=== PATIENT | female | born 1990 | race Caucasian/White ===

== ENCOUNTER 2020-08-22 12:01 | Outpatient (REF) | payer OTHER, SELFPAY ==
[2020-08-22 16:49] LABS: CT PCR NOT DETECTED (Not Detect.); NG PCR NOT DETECTED (Not Detect.)
[2020-08-23 09:05] LABS: BV Int Neg Control Negative (Negative); BV Int Pos Control Positive (Positive)
[2020-09-01 07:01] LABS: HPV mRNA E6/E7 rflx Not Detected (Not Detected)
== END 2020-08-22 12:02 | disposition home or self-care (01) ==
LOC: HO.LAB 12:01
PROVIDERS: Visit Provider Obstetrics & Gynecology
DX: Z01.419 Encounter for gynecological examination (general) (routine) without abnormal findings (principal); Z11.51 Encounter for screening for human papillomavirus (HPV); Z11.3 Encounter for screening for infections with a predominantly sexual mode of transmission; Z11.8 Encounter for screening for other infectious and parasitic diseases
CPT/HCPCS: 36415; 87480; 87491; 87510; 87591; 87624; 87660; 88141; 88142

== ENCOUNTER → 2021-06-07 08:17 | Outpatient (BNVA) | payer OTHER, SELFPAY | PROVIDERS: Visit Provider Advanced Practice Midwife | DX: Z30.432 Encounter for removal of intrauterine contraceptive device (principal); Z31.69 Encounter for other general counseling and advice on procreation | CPT/HCPCS: 58301 ==

== ENCOUNTER → 2021-09-12 08:11 | Outpatient (BNVA) | payer BC, SELFPAY | PROVIDERS: Visit Provider Advanced Practice Midwife | DX: Z13.89 Encounter for screening for other disorder (principal) ==

== ENCOUNTER 2022-10-11 08:04 | Outpatient (REF) | payer OTHER, SELFPAY ==
[2022-10-11 15:36] LABS: CT PCR NOT DETECTED (Not Detect.); NG PCR NOT DETECTED (Not Detect.)
[2022-10-13 04:04] LABS: HPV mRNA E6/E7 rflx Not Detected (Not Detected)
== END 2022-10-11 08:05 | disposition home or self-care (01) ==
LOC: HO.LNP 08:04
PROVIDERS: PCP Nurse Practitioner Family; Visit Provider Advanced Practice Midwife
DX: Z01.419 Encounter for gynecological examination (general) (routine) without abnormal findings (principal); Z11.51 Encounter for screening for human papillomavirus (HPV); Z20.2 Contact with and (suspected) exposure to infections with a predominantly sexual mode of transmission
CPT/HCPCS: 0353U; 87624; 88142

== ENCOUNTER 2022-11-14 08:05 | Outpatient (REF) | payer OTHER, SELFPAY | END 2022-11-14 08:06 | disposition home or self-care (01) | LOC: HO.LNP 08:05 | PROVIDERS: PCP Nurse Practitioner Family; Visit Provider Obstetrics & Gynecology | DX: L91.8 Other hypertrophic disorders of the skin (principal) | CPT/HCPCS: 11200; 11402; 88304 ==

== ENCOUNTER → 2022-12-12 08:13 | Outpatient (BNVA) | payer OTHER, SELFPAY | PROVIDERS: PCP Nurse Practitioner Family; Visit Provider Obstetrics & Gynecology | DX: L91.8 Other hypertrophic disorders of the skin (principal) | CPT/HCPCS: 99212 ==

== ENCOUNTER 2023-08-02 07:56 | Outpatient (AMB) | payer OTHER, SELFPAY ==
[2023-08-02 08:05] VITALS: BP 124/74; BMI 49.7
--- NOTE | 2023-08-02 08:05 | A.OFFVIS_ITS ---
Intake Vital Signs 08/02/23 08:05 Height 5 ft 6 in Weight 308 lb BMI 49.7 BP 124/74 Intake Visit Reasons: BC Consult Cognos Report Developer Required: No Information Interpreted: non-clinical & clinical Friction Welding Machine Operator: Friction Welding Machine Operator Present Accompanied by: Self / Same As Patient Allergies sulfamethoxazole [From Bactrim] Adverse Reaction (Verified 12/12/22 08:25) rash trimethoprim [From Bactrim] Adverse Reaction (Verified 12/12/22 08:25) rash Is last menstrual period known: Yes Last menstrual period: 07/22/23 Post menopausal: No HPI HPI Comments History of Present Illness Details Patient is here today for control consult. She has no longer with her partner and not seeking infertility services at this time. She reports recent STD screening at a walk-in center in June and reports testing was negative. It results in the chart from the facility today. She had the Mirena in the past and is interested in her options but is leaning towards having another Mirena as she likes not having a menstrual cycle monthly. Her cycles tend to be 3-4 days in length. Not currently sexually active. 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 Sexual orientation: Straight/Heterosexual Gender identity: Female Female Reproductive History Menstrual Date of last menstrual period: 07/22/23 Review of Systems Const All systems reviewed & are unremarkable except as noted in HPI and below Endo Reports no additional complaints Physical Exam Vital Signs: Last Vital Signs BP 124/74 08/02/23 08:05 BMI result Body Mass Index 49.7 Const General: cooperative, healthy appearing and no acute distress Psych Appearance: well kempt Attitude: cooperative Thought process: Normal thought process present Results AMB Test Urine AMB Test Urine Negative Last Edit by Kellee Ulloa CMA on 08:22 Assessment & Plan Assessment & Plan (1) control counseling: Code(s): Z30.09 - Encounter for other general counseling and advice on contraception Plan Discussed: Control Counseling Counseled on all options available. She decided the Mirena would be her best option. Advised preprocedure planning to eat drink that day. And to take 600 mg of ibuprofen 1 hour before the procedure time to help with her cramping. Plan cultures at the next visit. Can insert the IUD without her as long as there is no risks for . All of her questions and concerns were addressed to the best of my ability and shared decision making. She is agreeable to plan of care. Orders: Orders AMB HCG Urine Test Today Z32.02 - Encounter for test, result negative Coding Level of Care Code Est Pt Level 3 (92088) Diagnoses control counseling Z30.09
== END 2023-08-02 08:36 | disposition home or self-care (01) ==
LOC: HO.HWS 07:56
PROVIDERS: PCP Nurse Practitioner Family; Visit Provider Advanced Practice Midwife
DX: Z30.09 Encounter for other general counseling and advice on contraception (principal); Z32.02 Encounter for pregnancy test, result negative
CPT/HCPCS: 99213

== ENCOUNTER → 2023-08-02 07:56 | Outpatient (BNVA) | payer OTHER, SELFPAY | PROVIDERS: PCP Nurse Practitioner Family; Visit Provider Advanced Practice Midwife | DX: Z30.09 Encounter for other general counseling and advice on contraception (principal) | CPT/HCPCS: 81025; 99212 ==

== ENCOUNTER 2023-08-27 08:18 | Outpatient (AMB) | payer OTHER, SELFPAY ==
--- NOTE | 2023-08-27 08:21 | A.OFFVIS_ITS ---
Intake Vital Signs 08/27/23 08:23 Height 5 ft 6 in Weight 308 lb BMI 49.7 BP 110/70 Intake Visit Reasons: IUD Insertion Freight Sorter: Freight Sorter Present (Michelle) Allergies sulfamethoxazole [From Bactrim] Adverse Reaction (Verified 08/27/23 08:23) rash trimethoprim [From Bactrim] Adverse Reaction (Verified 08/27/23 08:23) rash Is last menstrual period known: Yes Last menstrual period: 08/22/23 HPI HPI Comments History of Present Illness Details Patient presents for her Mirena IUD insertion. LMP 08/22/2023. Denies any unprotected intimacy. 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 Sexual orientation: Straight/Heterosexual Gender identity: Female Female Reproductive History Menstrual Date of last menstrual period: 08/22/23 control method: progestin IUCD (Mirena insertion 08/27/2023) Review of Systems Const All systems reviewed & are unremarkable except as noted in HPI and below Physical Exam Vital Signs: Last Vital Signs BP 110/70 08/27/23 08:23 BMI result Body Mass Index 49.7 Const General: cooperative, healthy appearing and no acute distress Orientation/consciousness: patient oriented x3 GI Inspection: Yes normal to inspection Palpation (GI): Soft to palpation and Other GI palpation findings present (Nontender) Rectal Exam - Female: visual inspection normal General: Yes bladder normal to palpation External Female Exam: normal appearance of the urethra Speculum Exam - Vagina: normal appearance of the vagina, normal palpation, normal vaginal discharge and vaginal bleeding (Small amount of blood) Speculum Exam - Cervix: normal appearance of the cervix and normal palpation Bimanual exam- vagina & uterus: normal bimanual exam, normal palpation, uterine size normal, bladder normal to palpation, normal palpation, uterine shape normal and non-tender Bimanual Exam- Adnexa, other: normal adnexae OB/external & speculum: vaginal bleeding (Small amount of blood) Neuro General: patient oriented x3 Office Procedures Contraception Insert/Removal Details Details: The patient is here today for a IUD insertion. She was counseled on the side effects including: menstrual cycle changes, pain, infection, bleeding, or expulsion. Risks of injury to the vagina, cervix, uterus, tubes, ovaries, bowel, bladder, and any adjacent tissue, resulting in nerve damage, scarring, and pain. Risks complications for the procedure that may require other test including ultrasounds, Xray, CT or MRI scan, surgery, anesthesia, blood transfusion. A urine test was completed and was negative. She was consented for the IUD insertion and has signed the consent form. All questions were answered. IUD Insertion: The patient was placed in the dorsal lithotomy position and a sterile speculum was inserted. The procedure was completed under aseptic technique. The cervix was cleansed with a Betadine solution x 3 swabs. A single toothed tenaculum was applied to the cervix for stabilization, and the uterus was sounded to 9cm. The device was inserted and released with a gentle motion. Bleeding from the tenaculum sites and the procedure were minimal. The strings were trimmed to 3cm. All of the equipment was removed and the bimanual was normal, no tip was palpable at the cervical os. The patient tolerated the procedure well and left the office in good condition. Post IUD Insertion Care: There may be some post insertion bleeding for several days that is usually light and can turn to a light brown or pink in color. Mild cramping may occur. Nothing in the vagina including: tampons, douching or intimacy for several days. You may take an over the counter mild analgesia like Tylenol or Advil (if no allergies), per the manufacturers recommendations on dosing and frequency. Follow the directions completely. Call the office if any: fever (over 100.4), flu like symptoms, abdominal pain, worsening cramping not resolved with over the counter medications, foul smelling vaginal odor, signs of infected appearing discharge, or heavy bleeding. Use a condom for a back up method if indicated for 7 days. Always use a condom for STI prevention; IUD's are not protective against STD's. Return to the office in 4-6 weeks for IUD recheck. This note is constructed using voice recognition software. While every effort has been made to ensure accuracy, clinical cytopathologist errors may have been included. 38284 - Insertion Results AMB Test Urine AMB Test Urine Negative Last Edit by BARBARA Tavera on 08/27/23 08:36 Results Reviewed Results Reviewed: Laboratory Last Values [facility] Clinic Negative 08/27/23 08:36 Assessment & Plan Assessment & Plan (1) Encounter for insertion of mirena IUD: Code(s): Z30.430 - Encounter for insertion of intrauterine contraceptive device Plan See procedure notes Orders: Orders AMB HCG Urine Test Today Z32.02 - Encounter for test, result negative CT NG by PCR Today Z20.2 - Contact with and (suspected) exposure to infections with a predominantly sexual mode of transmission Medications: Discontinued PNV,calcium [id number] acid 27 mg iron- 1 mg ( Vitamins Plus Low Iron) Discontinued Reason: No Longer Medically Relevant 1 tab PO DAILY 90 tabs 4RF Coding Level of Care Code Procedure Only Diagnoses Encounter for insertion of mirena IUD Z30.430 CPT Codes Details - Contraception: 52082 - Insertion ([id number])
[2023-08-27 08:23] VITALS: BP 110/70; BMI 49.7
== END 2023-08-27 09:24 | disposition home or self-care (01) ==
PROVIDERS: PCP Nurse Practitioner Family; Visit Provider Advanced Practice Midwife
DX: Z32.02 Encounter for pregnancy test, result negative (principal); Z30.430 Encounter for insertion of intrauterine contraceptive device
CPT/HCPCS: 58300

== ENCOUNTER 2023-08-27 08:18 | Outpatient (REF) | payer OTHER, SELFPAY ==
[2023-08-28 11:40] LABS: CT PCR NOT DETECTED (Not Detect.); NG PCR NOT DETECTED (Not Detect.)
== END 2023-08-27 08:19 | disposition home or self-care (01) ==
LOC: HO.LNP 08:18
PROVIDERS: PCP Nurse Practitioner Family; Visit Provider Advanced Practice Midwife
DX: Z30.430 Encounter for insertion of intrauterine contraceptive device (principal); Z20.2 Contact with and (suspected) exposure to infections with a predominantly sexual mode of transmission
CPT/HCPCS: 0353U; 58300; 81025; J7298

== ENCOUNTER 2023-10-09 07:46 | Outpatient (AMB) | payer OTHER, SELFPAY ==
--- NOTE | 2023-10-09 07:52 | MHC.OFFVIS ---
Vital Signs 10/09/23 07:53 Height 5 ft 6 in Weight 308 lb BMI 49.7 BP 92/60 Intake Visit Reasons: 4-6 weeks IUD check Designer/Writer: Designer/Writer Present (Michelle) Allergies sulfamethoxazole [From Bactrim] Adverse Reaction (Verified 10/09/23 07:52) rash trimethoprim [From Bactrim] Adverse Reaction (Verified 10/09/23 07:52) rash HPI Comments Details: Patient is here for her 1st post IUD Mirena insertion check. Overall reports doing well, bleeding pattern was irregular this last cycle longer than usual. Currently has brown spotting. 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 Sexual orientation: Straight/Heterosexual Gender identity: Female Female Reproductive History Menstrual control method: progestin IUCD (Mirena 08/27/23) Review of Systems Const All systems reviewed & are unremarkable except as noted in HPI and below Physical Exam Vital Signs: Last Vital Signs BP 92/60 10/09/23 07:53 BMI result Body Mass Index 49.7 Const General: cooperative, healthy appearing and no acute distress Orientation/consciousness: patient oriented x3 GI Inspection: Yes normal to inspection Palpation (GI): Soft to palpation and Other GI palpation findings present (Nontender) Rectal Exam - Female: visual inspection normal General: Yes bladder normal to palpation External Female Exam: normal appearance of the urethra Speculum Exam - Vagina: normal appearance of the vagina, normal palpation and normal vaginal discharge Speculum Exam - Cervix: normal appearance of the cervix, normal palpation and Other cervical findings present (IUD strings at the os) Bimanual exam- vagina & uterus: normal bimanual exam, normal palpation, uterine size normal, bladder normal to palpation, normal palpation, uterine shape normal and non-tender Bimanual Exam- Adnexa, other: normal adnexae Neuro General: patient oriented x3 Assessment & Plan Assessment & Plan (1) IUD check up: Code(s): Z30.431 - Encounter for routine checking of intrauterine contraceptive device Plan Discuss observing for bleeding patterns, and when to call for any excessive bleeding or concerns. She is booked her annual exam at the end of the month. All of her questions and concerns were addressed to the best of my ability. She is agreeable to the plan of care. This note is constructed using voice recognition software. While every effort has been made to ensure accuracy, college tutor errors may have been included. Coding Level of Care Code Est Pt Level 2 (89752) Diagnoses IUD check up Z30.431
[2023-10-09 07:53] VITALS: BP 92/60; BMI 49.7
== END 2023-10-09 08:28 | disposition home or self-care (01) ==
PROVIDERS: PCP Nurse Practitioner Family; Visit Provider Advanced Practice Midwife
DX: Z30.431 Encounter for routine checking of intrauterine contraceptive device (principal)
CPT/HCPCS: 99212

== ENCOUNTER → 2023-10-09 07:46 | Outpatient (BNVA) | payer OTHER, SELFPAY | PROVIDERS: PCP Nurse Practitioner Family; Visit Provider Advanced Practice Midwife | DX: Z30.431 Encounter for routine checking of intrauterine contraceptive device (principal) | CPT/HCPCS: 99212 ==

== ENCOUNTER 2023-11-12 08:03 | Outpatient (REF) | payer OTHER, SELFPAY ==
[2023-11-12 15:21] LABS: Bacterial Vaginosis PCR POSITIVE (Negative); Candida Group PCR NOT DETECTED (Not Detect); Candida glab krusei PCR NOT DETECTED (Not Detect); Trichomonas vaginalis PCR NOT DETECTED (Not Detect)
== END 2023-11-12 08:04 | disposition home or self-care (01) ==
LOC: HO.LNP 08:03
PROVIDERS: PCP Nurse Practitioner Family; Visit Provider Advanced Practice Midwife
DX: R10.2 Pelvic and perineal pain (principal)
CPT/HCPCS: 0352U; 99395

== ENCOUNTER 2023-11-12 08:03 | Outpatient (AMB) | payer OTHER, SELFPAY ==
--- NOTE | 2023-11-12 08:14 | A.OFFVIS_ITS ---
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 Doing well with no concerns: random bleeding with IUD continues, reports cramping, no odor. She tries to eat healthy and stays active with some exercise. Currently is sexually active. She denies vaginal itching and irritation. STI screening offered; she accepts. Denies family history of breast or ovarian cancer. FH colon cancer. Last pap smear 2022, negative. 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 Sexual orientation: Straight/Heterosexual Gender identity: Female Female Reproductive History Menstrual Age of Menarche: 15 Duration of menses: other Date of last menstrual period: 11/04/23 control method: progestin IUCD Total pregnancies: 0 Date of last pap smear: 10/11/22 History of abnormal pap smear: Yes (2020 [facility]) Review of Systems Const All systems reviewed & are unremarkable except as noted in HPI and below Reports as per HPI Eyes Reports no additional complaints ENT Reports no additional complaints Card Reports no additional complaints Resp Reports no additional complaints GI Reports as per HPI and Reports no additional complaints Reports as per HPI Musc Reports no additional complaints Skin/Breast Reports as per HPI Neuro Reports no additional complaints Psych Reports no additional complaints Endo Reports no additional complaints Dusty/Lymph Reports no additional complaints Aller/Immun Reports no additional complaints Physical Exam Vital Signs: Last Vital Signs BP 106/70 11/12/23 08:16 BMI result Body Mass Index 47.3 Const General: cooperative, healthy appearing, no acute distress, well developed and alert Orientation/consciousness: patient oriented x3 HEENT Head: Yes normal to inspection Eyes General: appearance normal, both eyes and all related structures Neck Neck: Yes normal visual inspection Thyroid: Thyroid normal Chest Chest palpation & inspection: normal inspection of the chest and other (no puckering, dimpling, peau de orange, retraction, discharge, masses) Breast/axilla inspection: normal inspection of the breasts Breast/axilla palpation: normal palpation of the breasts Resp Effort & Inspection: normal respiratory effort GI Inspection: Yes normal to inspection Palpation (GI): Soft to palpation Rectal Exam - Female: deferred General: Yes bladder normal to palpation External Female Exam: normal external appearance and normal appearance of the urethra Speculum Exam - Vagina: normal appearance of the vagina, normal palpation and normal vaginal discharge Speculum Exam - Cervix: normal appearance of the cervix and normal palpation Bimanual exam- vagina & uterus: normal bimanual exam, normal palpation, uterine size normal, bladder normal to palpation, normal palpation and non-tender Bimanual Exam- Adnexa, other: no masses Skin General skin exam: no rashes or lesions noted Rashes: no rashes Neuro General: patient oriented x3 Cognition (Neuro): normal cognition Extrem General: Yes normal to inspection Psych Attitude: cooperative Thought process: Normal thought process present Assessment & Plan Assessment & Plan (1) Encounter for annual routine gynecological examination: Code(s): Z01.419 - Encounter for gynecological examination (general) (routine) without abnormal findings Category: Medical (2) Breakthrough bleeding associated with intrauterine device (IUD): Code(s): N92.1 - Excessive and frequent menstruation with irregular cycle; Z97.5 - Presence of (intrauterine) contraceptive device Category: Medical Plan Discussed: Current recommendations for pap smears per ASCCP guidelines. Breast awareness and periodic breast exams. Maintain a healthy lifestyle including a well balanced diet and routine exercise. Pelvic ultrasound, GC chlamydia was up-to-date, no changes plan BV panel if positive treat with oral dosing. Plan follow up ultrasound. Patient verbalizes understanding and agrees to the plan of care. She was given opportunity to ask questions and all questions were answered to the best of my ability. RTO in one year for annual retail business development manager examination. This note is constructed using voice recognition software. While every effort has been made to ensure accuracy, electrical and electronic assembler errors may have been included. Orders: Orders US pelvic and transvaginal Today N92.1 - Excessive and frequent menstruation with irregular cycle, Z97.5 - Presence of (intrauterine) contraceptive device Coding Level of Care Code Est Pt Prev Care 18-39y(66797) Diagnoses Encounter for annual routine gynecological examination Z01.419 Breakthrough bleeding associated with intrauterine device (IUD) N92.1; Z97.5
[2023-11-12 08:16] VITALS: BP 106/70; BMI 47.3
== END 2023-11-12 08:40 | disposition home or self-care (01) ==
PROVIDERS: PCP Nurse Practitioner Family; Visit Provider Advanced Practice Midwife
DX: Z01.419 Encounter for gynecological examination (general) (routine) without abnormal findings (principal); N92.1 Excessive and frequent menstruation with irregular cycle; Z97.5 Presence of (intrauterine) contraceptive device
CPT/HCPCS: 99395

== ENCOUNTER 2023-12-02 10:52 | Outpatient (REF) | payer OTHER, SELFPAY ==
--- NOTE | ~2023-12-02 | US_ITS ---
EXAMINATION: US PELVIS CLINICAL INFORMATION: Excessive and frequent menstruation with irregular cycles, last menstrual period November 04, 2023. COMPARISON: None available. TECHNIQUE: Ultrasound of the pelvis is performed using both transabdominal and transvaginal transducers along with Doppler. Transvaginal imaging is performed due to inadequate visualization transabdominally. FINDINGS: The uterus is anteverted and measures 7.1 x 3.5 x 5.[address] within the endometrial cavity. Small amount of free fluid in the pelvis. Fluid within the cervix. Left ovary measures 2.7 x 2.3 x 2.2 cm, volume 7.1 mL. Left ovary is grossly unremarkable, although visualization limited due to bowel gas. Right ovary measures 3.5 x 2.1 x 1.9 cm, volume 7.3 mL. Right ovarian 1.5 x 1.1 x 1.5 cm complex cyst with thick, echogenic wall and complex internal echoes as well as peripheral vascularity, difficult to fully characterize due to limited visualization, possibly representing a corpus luteum. US/US pelvic and transvaginal IMPRESSION: 1. IUD in place within the endometrial cavity. 2. Small amount of free fluid in the pelvis. 3. Right ovarian 1.5 cm complex cyst may possibly represent a corpus luteum, but is difficult to fully characterize due to limited visualization. 4. Recommend follow-up ultrasound in 6-8 weeks.
== END 2023-12-02 10:53 | disposition home or self-care (01) ==
LOC: HO.US 10:52
PROVIDERS: PCP Nurse Practitioner Family; Visit Provider Advanced Practice Midwife
DX: N92.0 Excessive and frequent menstruation with regular cycle (principal); Z97.5 Presence of (intrauterine) contraceptive device
CPT/HCPCS: 76830; 76856

== ENCOUNTER 2024-01-14 15:18 | Outpatient (AMB) | payer OTHER, SELFPAY ==
--- NOTE | 2024-01-14 15:19 | MHC.OFFVIS ---
Intake Visit Reasons: TV Ultra sound follow up Intake Note: cell #[phone] Press Manager: Press Manager Present Allergies sulfamethoxazole [From Bactrim] Adverse Reaction (Verified 01/14/24 15:19) rash trimethoprim [From Bactrim] Adverse Reaction (Verified 01/14/24 15:19) rash Is last menstrual period known: Yes HPI Comments Details: Tele [place] visit 3:34-3:39. I spent 5 minutes speaking with the patient on the phone plus an additional 5 minutes reviewing the chart and 5 minutes updating the medical record for a total of 15 minutes. Patient presents via phone to discuss: Patient is on the call today to follow up on her pelvic ultrasound findings, history of pelvic cramping with prior visit. Recent diagnosis of bacterial vaginosis, reports that her breakthrough bleeding and cramping has much reduced. She denies any pain on the right side. 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 Sexual orientation: Straight/Heterosexual Gender identity: Female Female Reproductive History Menstrual Age of Menarche: 15 Review of Systems Const All systems reviewed & are unremarkable except as noted in HPI and below Endo Reports no additional complaints Physical Exam Const General: cooperative, healthy appearing and no acute distress Psych Appearance: well kempt Attitude: cooperative Thought process: Normal thought process present Telehealth Telehealth Telehealth Platform: [employer] Location of provider rendering services: practice address Location of patient: other Patient Identification confirmed using: Name, : Yes Telehealth method: video Patient verbally consented to treatment: Yes Patient verbally consented to billing insurance company: Yes Patient informed of any privacy concerns related to visit: Yes Results Reviewed Results Reviewed: [address] [address] Ultrasound Report Signed Patient: Meenakshi Jo MR#: [id number] : 1990 Acct:[id number] Age/Sex: 33 / F ADM Date: 12/02/23 Loc: HO.US Attending Dr: Khushi Tinoco CNM Ordering Physician: Khushi Tinoco CNM Date of Service: 12/02/23 Procedure(s): US pelvic and transvaginal Accession Number(s): [id number] cc: Khushi Tinoco CNM; Bonnie Byrd ERP ENGINEER~ EXAMINATION: US PELVIS CLINICAL INFORMATION: Excessive and frequent menstruation with irregular cycles, last menstrual period November 04, 2023. COMPARISON: None available. TECHNIQUE: Ultrasound of the pelvis is performed using both transabdominal and transvaginal transducers along with Doppler. Transvaginal imaging is performed due to inadequate visualization transabdominally. FINDINGS: The uterus is anteverted and measures 7.1 x 3.5 x 5.[address] within the endometrial cavity. Small amount of free fluid in the pelvis. Fluid within the cervix. Left ovary measures 2.7 x 2.3 x 2.2 cm, volume 7.1 mL. Left ovary is grossly unremarkable, although visualization limited due to bowel gas. Right ovary measures 3.5 x 2.1 x 1.9 cm, volume 7.3 mL. Right ovarian 1.5 x 1.1 x 1.5 cm complex cyst with thick, echogenic wall and complex internal echoes as well as peripheral vascularity, difficult to fully characterize due to limited visualization, possibly representing a corpus luteum. US/US pelvic and transvaginal IMPRESSION: 1. IUD in place within the endometrial cavity. 2. Small amount of free fluid in the pelvis. 3. Right ovarian 1.5 cm complex cyst may possibly represent a corpus luteum, but is difficult to fully characterize due to limited visualization. 4. Recommend follow-up ultrasound in 6-8 weeks. Dictated By: Ani Tobin MD Signed By: <Electronically signed by Ani Tobin MD in OV> 12/30/23 0826 DD/ 1119 TD/TT: Drain Cleaner: Assessment & Plan Assessment & Plan (1) Complex ovarian cyst: Code(s): N83.299 - Other ovarian cyst, unspecified side (2) Breakthrough bleeding associated with intrauterine device (IUD): Code(s): N92.1 - Excessive and frequent menstruation with irregular cycle; Z97.5 - Presence of (intrauterine) contraceptive device Category: Medical (3) Encounter to discuss test results: Code(s): Z71.2 - Person consulting for explanation of examination or test findings Plan Discussed: Ultrasound findings including IUD in proper position, right complex ovarian cyst 1.5 cm. Counseled regarding findings of: Complex ovarian cyst, which is often benign, and most resolve on their own overtime. Some develop into premalignant or malignant tumors. Limitations of testing for diagnostic purposes. Further monitoring and evaluation is recommended with US, possible CT, or MRI study. If persists, or is indicated (Ca-125, Carbohydrate Antigen 19-9, & Carcinoembryonic Antigen) labs will be ordered and referral to [facility] or general gynecology for MD care if indicated for possible surgical consult. Repeat ultrasound ordered, Follow up for test results. All of her questions and concerns were addressed to the best of my ability and shared decision making. She is agreeable to the plan of care. Call sooner if there is any concerns. This note is constructed using voice recognition software. While every effort has been made to ensure accuracy, cardiology clinical nurse specialist errors may have been included. Orders: Orders US pelvic and transvaginal 02/03/24 N83.291 - Other ovarian cyst, right side, N83.299 - Other ovarian cyst, unspecified side Coding Level of Care Code Tele Est Pt Level 3 (37383) Diagnoses Complex ovarian cyst N83.299 Breakthrough bleeding associated with intrauterine device (IUD) N92.1; Z97.5 Encounter to discuss test results Z71.2
--- OUTSIDE RECORDS SUMMARY | 2024-01-14 15:20 | XMS_ITS | Continuity of Care Document ---
Author Organization [facility] Address [address] [place] [address]- Care Team Providers Care Flea Market Seller Name Role Phone Carson VELASQUEZ, Bonnie Ayala Primary Care Physician [phone] [place] [facility] [id number] Date(s): 06/06/22 - 07/06/22 [facility] [address] [place], [place] [address] Attending Physician: Quincy Marcelino DO Referring Physician: Bonnie Byrd NP Allergies, Adverse Reactions, Alerts Substance Reaction Severity Status Bactrim Persistent Moderate Active Immunizations Given and Recorded Vaccine Date Status Refusal Reason influenza virus vaccine, inactivated 04/27/22 Give n influenza virus vaccine, inactivated 03/29/21 Luis rded influenza virus vaccine, inactivated 03/30/18 Luis rded influenza virus vaccine, inactivated 04/23/08 Luis rded SARS-CoV-2 (COVID-19) mRNA BNT-162b2 vac 10/23/20 Recorded SARS-CoV-2 (COVID-19) mRNA BNT-162b2 vac 10/02/20 Recorded Human Papillomavirus Vaccine 10/25/08 Recorded Human Papillomavirus Vaccine 06/23/08 Recorded Human Papillomavirus Vaccine 04/23/08 Recorded Medications sertraline 50 mg oral tablet 1.5 tablet = 75 mg, By Mouth, Daily, # 135 tablet, 0 Refills, Maintenance, 05/18/22 16:29:00 EST, Tablet, [id number], Partial fill upon patient request if the prescription is for a schedule II opioid drug., 168, cm, 05/18/22 16:10:00 EST, [place]... Start Date: 05/18/22 Status: Ordered Problem List Condition Confirmation Course Effective Dates Status Health St atus Informant Generalized anxiety disorder Confirmed Active Prediabetes Confirmed Active Severe obesity Confirmed Active Social History Social History Type Response Smoking Status Never (less than 100 in lifetime) entered on: 11/01/20 Sex Patient Care team information Care Team Personnel Name: Carson VELASQUEZ, Bonnie Ayala Position: S PCO Associate Professional Member Role: PCP Address: Address: [address] [place] [address] Care [place] [id number]- Care Team Related Persons Name: TOYINLISA WENDY Address: home [address] [place] [address]
--- OUTSIDE RECORDS SUMMARY | 2024-01-14 15:20 | XMS_ITS | Continuity of Care Document ---
Author Organization [facility] Address [address], [address] [place] [address]- Care Team Providers Care Healthcare Economics Consultant Name Role Phone Carson VELASQUEZ, Bonnie Ayala Primary Care Physician Encounter [facility] Date(s): 01/28/23 - 02/27/23 [facility] [address], 4[address] [place] [address]- Allergies, Adverse Reactions, Alerts Substance Reaction Severity [...] Recorded Human Papillomavirus Vaccine 04/23/08 Recorded Medications buPROPion 300 mg/24 hours (XL) oral tablet, extended release 1 tablet, By Mouth, Daily, # 30 tablet, 5 Refills, Maintenance, 02/05/23 5:34:00 EDT, [id number], 168, cm, 01/04/23 9:45:00 EDT, Height Start Date: 02/05/23 Status: Ordered fluticasone 50 mcg/inh nasal spray 1 sprays, Nares, Both, Daily in AM, # 16 Gm, 0 Refills, Maintenance, 11/13/22 16:24:00 EDT, [place], [id number], Partial fill upon patient request if the prescription is for a schedule II opioid drug., 1 sprays Nares, Both Daily in AM, 168, cm,... Start Date: 11/13/22 Status: Ordered ketotifen 0.025% ophthalmic solution See Instructions, 1 drops Eyes, Both daily PRN for allergy symptoms, # 7.5 mL, 0 Refills, Maintenance, 11/13/22 16:25:00 EDT, Ophth Solution, [facility] #[id number], Partial fill upon patient request if the prescription is for a schedule II opioid drug.,... Start Date: 11/13/22 Status: Ordered loratadine 10 mg oral tablet 10 mg, 1, tablet, By Mouth, Daily, # 30 tablet, Refills 0, Tot. Refills 0, Maintenance, 11/13/22 16:28:00 EDT, Route to Pharmacy Electronically, [facility] #[id number], Partial fill upon patient request if the prescription is for a schedule II opioid drug... Start Date: 11/13/22 Status: Ordered Problem List Condition Confirmation Course Effective Dates Status Health St atus Informant Generalized anxiety disorder Confirmed Active Prediabetes Confirmed Active Severe obesity Confirmed Active Social History Social History Type Response Smoking Status Never (less than 100 in lifetime) entered on: 11/01/20 Sex Patient Care team information Care Team Personnel Name: Bonnie Byrd NP Position: [facility] PCO Associate Professional Member Role: PCP Address: Address: [address] [place] [address] [place] [address]- Care Team Related Persons Name: WENDY BETTS Address: home [address] [place] [id number]
--- OUTSIDE RECORDS SUMMARY | 2024-01-14 15:20 | XMS_ITS | Continuity of Care Document ---
Author Organization [facility] Address [address] [place] [address]- Care Team Providers Care Utility Service Worker Name Role Phone Carson VELASQUEZ, Bonnie Ayala Primary Care Physician Encounter [facility] [place] Date(s): 05/06/22 - 05/13/22 [facility] [address] [place] [address]- Attending Physician: Patric Penaloza Referring Physician: Bonnie Byrd NP Allergies, Adverse [...] Recorded Human Papillomavirus Vaccine 04/23/08 Recorded Medications hydrOXYzine pamoate 25 mg oral capsule 1 capsule = 25 mg, By Mouth, 4 times a day, PRN for anxiety, # 40 capsule, 0 Refills, Maintenance, 04/27/22 16:17:00 EST, [place], [id number], Partial fill upon patient request if the prescription is for a schedule II opioid drug., 168, cm, 11... Start Date: 04/27/22 Status: Ordered sertraline 25 mg oral tablet See Instructions, Take 0.5 tab daily at bedtime x 7 days then increase to 1 tablet By Mouth Qhs, # 30 tablet, 0 Refills, Maintenance, 04/27/22 16:18:00 EST, [facility]/pharmacy #1234, Partial fill upon patient request if the prescription is for a schedule II... Start Date: 04/27/22 Status: Ordered Problem List Condition Confirmation Course Effective Dates Status Health St atus Informant Prediabetes Confirmed Active Severe obesity Confirmed Active Vital Signs Most recent to oldest [Reference Range]: 1 Height 168 cm (05/06/22 11:52 AM) Oxygen Saturation [94-100 %] 99 % (05/06/22 11:52 AM) Pulse Rate [55-90 bpm] 67 bpm (05/06/22 11:52 AM) Blood Pressure [90-138/55-84 mm Hg] 135/ 90mm Hg (05/06/22 11:52 AM) Respiratory Rate [16-30 br/min] 20 br/mi n (05/06/22 11:52 AM) Temperature [96.8-100.4 DegF] 97.5 DegF (05/06/22 11:52 AM) Mode of Delivery (Oxygen) Room air (05/06/22 11:52 AM) Blood pressure sites Arm, right (05/06/22 11:52 AM) Temperature Route Temporal (05/06/22 11:52 AM) Social History Social History Type Response Smoking Status Never (less than 100 in lifetime) entered on: 11/01/20 Sex Note * Patric Penaloza: PERFORM, SIGN, VERIFY Event Display: Patient Education/Instruction Authored Date: [id number] [facility] *[facility] Clinical Summary Name MAINE MARINO Age 32 Years 1990 PCP Carson VELASQUEZ, Bonnie Ayala PCP Visit Date 05/06/2022 10:36:00 Additional Instructions: Follow up with your primary provider. Call today or tomorrow for appointment. Go to the Emergency Department if symptoms worsen, don??t improve, or there is any other concern. Get well soon! Thank you for visiting our urgent care today. Our entire team works together to provide you with the best care possible. Examination and treatment you received at the urgent care has been rendered on an urgent basis only. It is not intended to be a substitute for or an effort to provide complete medical care. You should follow-up with your primary care provider. Please report to your physician any new or remaining problems, because it is impossible to recognize and treat all elements of injury or illness in a single urgent care visit. In the event that you are unable to obtain a follow-up appointment in a timely fashion, OR you are not getting any better, OR you are getting worse, OR you develop any symptoms of concern, please return here immediately for further evaluation OR go to your nearest Emergency Department. Scheduled Appointments?? Future Appointments ?*[facility] [address]??[place],??[place],??[address] ?Phone:??--?Fax:??-- ?Appt. Date:??05/18/2022?3:45 PM ?Scheduled Provider:??Carson VELASQUEZ, Bonnie Ayala Follow-Up Instructions ?? Diagnosis Medications: Please continue your medications until treatment is completed or stopped by your provider. Discuss any questions related to medications with your provider. Medications to Continue with No Changes These medications were not printed or sent to your pharmacy HydrOXYzine (hydrOXYzine pamoate 25 mg oral capsule) 1 capsule Oral 4 times a day as needed for anxiety. Refills: 0. Next Dose: Sertraline (sertraline 25 mg oral tablet) Take 0.5 tab daily at bedtime x 7 days then increase to 1tablet By Mouth Qhs. Refills: 0. Next Dose: Allergy Info:?? Bactrim Medications Given This Visit Future Orders ?COVID-19, RSV, and Flu A/B, Rapid PCR? Order Date:05/06/22?- Complete on or after?05/06/22 Vital Signs Height 168 cm Weight BMI Blood Pressure 135 mm Hg/90 mm Hg Temperature 97.5 DegF Pulse Rate 67 bpm Respiratory Rate 20 br/min 02 Sat Mode of Delivery 99 %/Room air You can now view a summary of your hospital visit from the comfort of your home through a free online portal called [employer]. [employer] is a website that allows you to securely view your medical information including discharge summary, medications and follow-up visits. ??You can alsosend a secure electronic message to your doctor???s office to request appointments, renew medications or just ask a question. You can enroll at [email or web address] or register during your next office visit. Disclaimer:?? The information provided is of a general nature and is intended to be used in conjunction with the recommendations and advice of your health care practitioner. ??Every effort has been made to ensure that the information provided is accurate and complete at the time it is provided to you however, as your needs change, or, as new ??information becomes available, different or additional instructions may be required. If you have questions, please consult with your primary care provider or pharmacist, as appropriate. ??This information is not intended to serve as substitution for assessment and evaluation by a qualified health care provider. If you do not have a primary care provider, you may find a [facility] provider by calling [facility] [employer] at [phone]. For information about the plan of care including goals and instructions for your diagnosis, please see the patient education orders section of this document. Patient Education Materials?? The content of this educational material or handout may have been modified, supplemented, or adapted from its original content and format to support your individualized medical care. Patient Care team information Care Team Personnel Name: Bonnie Byrd NP Position: S PCO Associate Professional Member Role: PCP Address: Address: [address] [place] [address] [place] [address]- Care Team Related Persons Name: TOYINLISAWENDY Address: home [address] [place] [id number]
--- OUTSIDE RECORDS SUMMARY | 2024-01-14 15:20 | XMS_ITS | Continuity of Care Document ---
Author Organization [facility] Address [address] [place] [address]- Care Team Providers Care Sterile Preparation Technician Name Role Phone Carson VELASQUEZ, Bonnie Ayala Primary Care Physician Encounter [facility] [place] Date(s): 06/06/22 - 07/06/22 [facility] [address] [place], [place] [address] Attending Physician: Admsaulo, Heather Admitting Physician: AdmtrHeather Referring Physician: Admtr, Ar8 Allergies, Adverse Reactions, Alerts Substance Reaction Severity [...] Refills, Maintenance, 05/18/22 16:29:00 EST, Tablet, [id number], Partial fill upon patient request if the [...] Personnel Name: Carson VELASQUEZ, Bonnie Ayala Position: [facility] PCO Associate Professional Member Role: PCP Address: Address: [address] [place] [address] [place] [address]- Care Team Related Persons Name: WENDY BETTS Address: home [address] [place] [address]
--- OUTSIDE RECORDS SUMMARY | 2024-01-14 15:20 | XMS_ITS | Continuity of Care Document ---
Author Organization [facility] Address [address] [place] [address]- Care Team Providers Care Cloth Wire Weaver Name Role Phone Carson VELASQUEZ, Bonnie Ayala Primary Care Physician [place] [facility] Date[place] 05/06/22 - 06/05/22 [facility] [address] [place] [address]- Attending Physician: Heather Kaiser Admitting Physician: AdmHeather vernon Referring Physician: AdmtrHeather Allergies, Adverse Reactions, Alerts Substance Reaction Severity [...] Recorded Medications sertraline 50 mg oral tablet 1 tablet = 50 mg, By Mouth, Daily, # 90 tablet, 0 Refills, Maintenance, 05/18/22 16:29:00 EST, Tablet, [id number], Partial fill upon patient request if the prescription is for a schedule II opioid drug., 168, cm, 05/18/22 16:10:00 EST, Height,... Start Date: 05/18/22 Status: Ordered Problem List [...] Associate Professional Member Role: PCP Address: Address: [address] [place] [address] [place] [address]- Care Team Related Persons Name: WENDY BETTS Address: home [address] [place] [id number]
--- OUTSIDE RECORDS SUMMARY | 2024-01-14 15:20 | XMS_ITS | Continuity of Care Document ---
Author Organization [facility] Address [address] [place] [address], [address]t [address] [place] [address]- Care Team Providers Care Power Transformer Inspector Name Role Phone Carson VELASQUEZ, Bonnie Ayala Primary Care Physician Encounter [facility] [place] Date(s): 01/24/23 - 02/23/23 [facility] [address] [place] [address], [address] [place], [place] [address] Attending Physician: Heather Kaiser Admitting Physician: AdmtrHeather Referring Physician: Admtr, Ar8 [...] Gm, 0 Refills, Maintenance, 11/13/22 16:24:00 EDT, [place], [facility]/pharmacy #[id number], Partial fill upon patient request if the prescription is for a schedule II opioid drug., 1 sprays Nares, Both Daily in AM, 168, cm,... Start Date: 11/13/22 Status: Ordered ketotifen 0.025% ophthalmic solution See Instructions, 1 drops Eyes, Both daily PRN for allergy symptoms, # 7.5 mL, 0 Refills, Maintenance, 11/13/22 16:25:00 EDT, Ophth Solution, [facility]/pharmacy #[id number], Partial fill upon patient request if the prescription is for a schedule II opioid drug.,... Start Date: 11/13/22 Status: Ordered loratadine 10 mg oral tablet 10 mg, 1, tablet, By Mouth, Daily, # 30 tablet, Refills 0, Tot. Refills 0, Maintenance, 11/13/22 16:28:00 EDT, Route to Pharmacy Electronically, [facility]/pharmacy #1234, Partial fill upon patient request [...] Associate Professional Member Role: PCP Address: Address: [address] [place] [address] [place] [address]- Care Team Related Persons Name: WENDY BETTS Address: home [address] [place] [address]
--- OUTSIDE RECORDS SUMMARY | 2024-01-14 15:20 | XMS_ITS | Continuity of Care Document ---
Author Organization [facility] Address [address] [place] [address]- Care Team Providers Care Body Stylist Name Role Phone Teagan GARCIA, John Huerta Primary Care Physician [place] [facility] [place] Date(s): 04/10/20 - 04/17/20 [facility] [address] [place] [address]- Attending Physician: Jamison Cruz MD Referring Physician: Not on Staff, Referring MD Allergies, Adverse Reactions, Alerts Substance Reaction Severity Status NKA Active
--- OUTSIDE RECORDS SUMMARY | 2024-01-14 15:20 | XMS_ITS | Continuity of Care Document ---
Author Organization [facility] Address [address], [address] [place] [address]- Care Team Providers Care Therapist Radiation Name Role Phone Carson VELASQUEZ, Bonnie Ayala Primary Care Physician [phone] [place] [facility] [place] Date(s): 01/17/23 - 02/16/23 [facility] [address], 4th [address] [place] [address]- Allergies, Adverse Reactions, Alerts Substance Reaction Severity [...] Gm, 0 Refills, Maintenance, 11/13/22 16:24:00 EDT, [place], [id number], Partial fill upon patient request if the prescription is for a schedule II opioid drug., 1 sprays Nares, Both Daily in AM, 168, cm,... Start Date: 11/13/22 Status: Ordered ketotifen 0.025% ophthalmic solution See Instructions, 1 drops Eyes, Both daily PRN for allergy symptoms, # 7.5 mL, 0 Refills, Maintenance, 11/13/22 16:25:00 EDT, Ophth Solution, [facility]/pharmacy #1234, Partial fill upon patient request if the prescription is for a schedule II opioid drug.,... Start Date: 11/13/22 Status: Ordered loratadine 10 mg oral tablet 10 mg, 1, tablet, By Mouth, Daily, # 30 tablet, Refills 0, Tot. Refills 0, Maintenance, 11/13/22 16:28:00 EDT, Route to Pharmacy Electronically, [facility]/pharmacy #1234, Partial fill upon patient request [...] Team Personnel Name: Bonnie Byrd NP Position: [facility] PCO Associate Professional Member Role: PCP Address: Address: [address] [place] [address] [place] [address]- Care Team Related Persons Name: WENDY BETTS Address: home [address] [place] [id number]
--- OUTSIDE RECORDS SUMMARY | 2024-01-14 15:20 | XMS_ITS | Continuity of Care Document ---
Author Organization [facility] Address [address] [place] [address], 4t [address] [place] [address]- Care Team Providers Care Handbag Designer Name Role Phone Carson VELASQUEZ, Bonnie H Primary Care Physician [phone] [place] [facility] [place]): [place]23 - 01/10/23 [facility] [address], 4th [address] [place] [address]- Attending Physician: Edelmira Persaud MD Referring Physician: Khushi Tinoco CNM, I Allergies, Adverse Reactions, Alerts Substance Reaction Severity [...] Recorded Human Papillomavirus Vaccine 04/23/08 Recorded Medications fluticasone 50 mcg/inh nasal spray 1 sprays, Nares, Both, Daily in AM, # 16 Gm, 0 Refills, Maintenance, 11/13/22 16:24:00 EDT, [place], [id number], Partial fill upon patient request if the prescription is for a schedule II opioid drug., 1 sprays Nares, Both Daily in AM, 168, cm,... Start Date: 11/13/22 Status: Ordered ketotifen 0.025% ophthalmic solution See Instructions, 1 drops Eyes, Both daily PRN for allergy symptoms, # 7.5 mL, 0 Refills, Maintenance, 11/13/22 16:25:00 EDT, Ophth Solution, [facility]/pharmacy #[id number], Partial fill upon patient request if the prescription is for a schedule II opioid drug.,... Start Date: 11/13/22 Status: Ordered loratadine 10 mg oral tablet 10 mg, 1, tablet, By Mouth, Daily, # 30 tablet, Refills 0, Tot. Refills 0, Maintenance, 11/13/22 16:28:00 EDT, Route to Pharmacy Electronically, [facility]/pharmacy #[id number], Partial fill upon patient request if the prescription is for a schedule II opioid drug... Start Date: 11/13/22 Status: Ordered Wellbutrin XL 300 mg/24 hours oral tablet, extended release 1 tablet = 300 mg, By Mouth, Daily, # 30 tablet, 3 Refills, Maintenance, 08/14/22 9:26:00 EST, ER Tablet, [facility]/pharmacy #[id number], Partial fill upon patient request if the prescription is for a schedule II opioid drug., 168, cm, 08/14/22 9:08:00 EST, Height Start Date: 08/14/22 Status: Ordered Problem List Condition Confirmation Course Effective Dates Status Health St atus Informant Generalized anxiety disorder Confirmed Active Prediabetes Confirmed Active Severe obesity Confirmed Active Vital Signs Most recent to oldest [Reference Range]: 1 Height 168 cm (01/04/23 9:45 AM) Weight 137.5 kg (01/04/23 9:45 AM) Body Mass Index [18.5-24.99 kg/m2] 48.72 kg/m2 *>HHI* (01/04/23 9:45 AM) Social History Social History Type Response Smoking Status Never (less than 100 in lifetime) entered on: 11/01/20 Sex Note * Jakub Masters [place]: PERFORM, SIGN, VERIFY Event Display: Patient Education/Instruction Authored Date: [id number] [facility] *[facility] Clinical Summary Name MAINE MARINO Age 32 Years 1990 PCP Carson VELASQUEZ, Bonnie Ayala PCP Visit Date 01/03/2023 16:00:00 Additional Instructions: Scheduled Appointments?? Future Appointments ?No Future Appointments Scheduled Follow-Up Instructions ?? Diagnosis Encounter for other general counseling and advice on procreation; Female infertility, unspecified Medications: Please continue your medications until treatment is completed or stopped by your provider. Discuss any questions related to medications with your provider. Medications to Continue with No Changes These medications were not printed or sent to your pharmacy BuPROpion (Wellbutrin XL 300 mg/24 hours oral tablet, extended release) 1 tab(s) Oral Daily. Refills: 3. Next Dose: Fluticasone Nasal (fluticasone 50 mcg/inh nasal spray) 1 spray(s) Nares, Both Daily in the morning.Refills: 0. Next Dose: Ketotifen Ophthalmic (ketotifen 0.025% ophthalmic solution) 1 drops Eyes, Both daily PRN for allergy symptoms. Refills: 0. Next Dose: Loratadine (loratadine 10 mg oral tablet) 1 tab(s) Oral Daily. Refills: 0. Next Dose: Allergy Info:?? Bactrim Medications Given This Visit Future Orders ?No future orders Vital Signs Height 168 cm Weight 137.5 kg BMI 48.72 kg/m2 Blood Pressure / Temperature Pulse Rate Respiratory Rate 02 Sat Mode of Delivery / You can now view a summary of your hospital visit from the comfort of your home through a free online portal called [employer]. [employer] is a website that allows you to securely view your medical information including discharge summary, medications and follow-up visits. ??You can alsosend a secure electronic message to your doctor???s office to request appointments, renew medications or just ask a question. You can enroll at [email or web address] or register during your next office visit. [...] primary care provider, you may find a [facility] provider by calling [facility] at [phone]. For information about the plan of care including goals and instructions for your diagnosis, please see the patient education orders section of this document. Patient Education Materials?? The content of this educational material or handout may have been modified, supplemented, or adapted from its original content and format to support your individualized medical care. Additional Provider Instructions: I sent and email to pt with all information and consents requested by Dr. Persaud. I also called pt twice left detailed voice mail with instructions on getting bloodwork done day 3 of cycle at any brl also calling to schedule [facility] on day one of menstraul or next business day. Partner can schedule his Practice pre and go to lab when he is ready. Also I sent a consult to [facility] for accounting tutor Patient Care team information Care Team Personnel Name: Carson VELASQUEZ, Bonnie Ayala Position: [facility]O Associate Professional Member Role: PCP Address: Address: [address] [place] [address] [place] [address]- Care Team Related Persons Name: TOYINLISAWENDY Address: home [address] [place] [id number]
--- OUTSIDE RECORDS SUMMARY | 2024-01-14 15:20 | XMS_ITS | Continuity of Care Document ---
Author Organization [facility] Address [address] [place] [address], 4t [address] [place] [address]- Care Team Providers Care Paper Tube Machine Operator Name Role Phone Carson VELASQUEZ, Bonnie H Primary Care Physician [place] [facility] [id number] Date(s): 01/24/23 - 01/31/23 [facility] [address] [place] [address], 4th [address] [place], [place] [address] Attending Physician: Edelmira Persaud MD Allergies, Adverse Reactions, Alerts Substance Reaction [...] Gm, 0 Refills, Maintenance, 11/13/22 16:24:00 EDT, [place], [id number], Partial fill upon patient request if the prescription is for a schedule II opioid drug., 1 sprays Nares, Both Daily in AM, 168, cm,... Start Date: 11/13/22 Status: Ordered ketotifen 0.025% ophthalmic solution See Instructions, 1 drops Eyes, Both daily PRN for allergy symptoms, # 7.5 mL, 0 Refills, Maintenance, 11/13/22 16:25:00 EDT, Ophth Solution, [facility], Partial fill upon patient request if the prescription is for a schedule II opioid drug.,... Start Date: 11/13/22 Status: Ordered loratadine 10 mg oral tablet 10 mg, 1, tablet, By Mouth, Daily, # 30 tablet, Refills 0, Tot. Refills 0, Maintenance, 11/13/22 16:28:00 EDT, Route to Pharmacy Electronically, [facility]/pharmacy #1234, Partial fill upon patient request if the prescription is for a schedule II opioid drug... Start Date: 11/13/22 Status: Ordered Wellbutrin XL 300 mg/24 hours oral tablet, extended release 1 tablet = 300 mg, By Mouth, Daily, # 30 tablet, 3 Refills, Maintenance, 08/14/22 9:26:00 EST, ER Tablet, [facility]/pharmacy #1234, Partial fill upon patient request if [...] Associate Professional Member Role: PCP Address: Address: [address] [place] [address] [place] [address]- Care Team Related Persons Name: WENDY BETTS Address: home [address] [place] [id number]
--- OUTSIDE RECORDS SUMMARY | 2024-01-14 15:20 | XMS_ITS | Continuity of Care Document ---
Author Organization [facility] Address [address] [place] [address]- Care Team Providers Care Profiler Name Role Phone Carson VELASQUEZ, Bonnie Ayala [id number] [address] [place], [place] [address] Encounter Diagnosis Productive cough(Discharge Diagnosis) - 06/06/22 Upper respiratory infection(Discharge Diagnosis) - 06/06/22 Attending Physician: Quincy Marcelino DO Referring Physician: [...] Recorded Human Papillomavirus Vaccine 04/23/08 Recorded Medications Azithromycin 5 Day Dose Pack 250 mg oral tablet 1 pack/packet, By Mouth, Once, # 6 tablet, 0 Refills, Soft Stop, 06/06/22 16:45:00 EST, Tablet, [facility], Partial fill upon patient request if the prescription is for a schedule II opioid drug., 168, cm, 06/06/22 16:22:00 EST, Height, 124, k... Start Date: 06/06/22 Status: Ordered sertraline 50 mg oral tablet 1 tablet = 50 mg, By Mouth, Daily, # 90 tablet, 0 Refills, Maintenance, 05/18/22 16:29:00 EST, Tablet, [facility], Partial fill upon patient request if the prescription is for a schedule II opioid drug., 168, cm, 05/18/22 16:10:00 EST, Height,... Start Date: 05/18/22 Status: Ordered Tessalon Perles 100 mg oral capsule 2 capsule = 200 mg, By Mouth, 3 times a day, # 30 capsule, 0 Refills, Acute 06/16/22 16:46:00 EST, 06/06/22 16:45:00 EST, Capsule, [facility], Partial fill upon patient request if the prescription is for a schedule II opioid drug., 168, cm, 12... Start Date: 06/06/22 Stop Date: 06/16/22 Status: Ordered Problem List Condition Confirmation Course Effective Dates Status Health St atus Informant Generalized anxiety disorder Confirmed Active Prediabetes Confirmed Active Severe obesity Confirmed Active Diagnosis Diagnosis Type Effective Dates Health Status Clinical Service Informant Productive cough Discharge Diagnosis 06/06/22 Upper respiratory infection Discharge Diagnosis 06/06/22 Vital Signs Most recent to oldest [Reference Range]: 1 Height 168 cm (06/06/22 4:22 PM) Oxygen Saturation [94-100 %] 99 % (06/06/22 4:22 PM) Pulse Rate [55-90 bpm] 76 bpm (06/06/22 4:22 PM) Blood Pressure [90-138/55-84 mm Hg] 120/ 69mm Hg (06/06/22 4:22 PM) Temperature [96.8-100.4 DegF] 97.2 DegF (06/06/22 4:22 PM) Mode of Delivery (Oxygen) Room air (06/06/22 4:22 PM) Blood pressure sites Arm, left (06/06/22 4:22 PM) Temperature Route Temporal (06/06/22 4:22 PM) Social History Social History Type Response Smoking Status Never (less than 100 in lifetime) entered on: 11/01/20 Sex Note * Radha Quinonez: PERFORM, SIGN, VERIFY Event Display: Patient Education/Instruction Authored Date: [id number] [facility] *[facility] Clinical Summary Name MAINE MARINO Age 32 Years 1990 PCP Bonnie Byrd NP PCP Visit Date 06/06/2022 13:11:00 Additional Instructions: Scheduled Appointments?? Future Appointments ?*[facility] [address]??[place],??[place],??[address] ?Phone:??--?Fax:??-- ?Appt. Date:??06/18/2022?3:30 PM ?Scheduled Provider:??Bonnie Byrd NP Follow-Up Instructions ?? Diagnosis Medications: Please continue your medications until treatment is completed or stopped by your provider. Discuss any questions related to medications with your provider. New Medications [facility]/pharmacy #[id number], [address], [place] [id number], [phone] Azithromycin (Azithromycin 5 Day Dose Pack 250 mg oral tablet) 1 pack/packet Oral once. Refills: 0. Next Dose: Benzonatate (Tessalon Perles 100 mg oral capsule) 2 capsule Oral 3 times a day. Refills: 0. Next Dose: - Guaifenesin/Codeine (codeine-guaifenesin 10 mg-100 mg/5 mL oral syrup) 5 Milliliter Oral every 6 hours as needed for cough. Refills: 0. Next Dose: Medications to Continue with No Changes These medications were not printed or sent to your pharmacy Sertraline (sertraline 50 mg oral tablet) 1 tab(s) Oral Daily. Refills: 0. Next Dose: Allergy Info:?? Bactrim Medications Given This Visit Future Orders ?COVID-19, RSV, and Flu A/B, Rapid PCR? Order Date:06/06/22?- Complete on or after?06/06/22 Vital Signs Height 168 cm Weight BMI Blood Pressure 120 mm Hg/69 mm Hg Temperature 97.2 DegF Pulse Rate 76 bpm Respiratory Rate 02 Sat Mode of Delivery 99 %/Room air You can now view a summary of your hospital visit from the comfort of your home through a free online portal called [employer]. [employer] is a website that allows you to securely view your medical information including discharge summary, medications and follow-up visits. ??You can alsosend a secure electronic message to your doctor???s office to request appointments, renew medications or just ask a question. You can enroll at [email or web address] or register during your next office visit. [...] primary care provider, you may find a [facility] provider by calling [facility] Link at [phone]. For information about the plan of care [...] Personnel Name: Carson VELASQUEZ, Bonnie Ayala Position: [facility] Associate Professional Member Role: PCP Address: Address: [address] [place], [place] [address]- Care Team Related Persons Name: WENDY BETTS Address: [address] [address]
== END 2024-01-14 16:29 | disposition home or self-care (01) ==
LOC: HO.HWS 15:18
PROVIDERS: PCP Nurse Practitioner Family; Visit Provider Advanced Practice Midwife
DX: N83.299 Other ovarian cyst, unspecified side (principal); N92.1 Excessive and frequent menstruation with irregular cycle; Z97.5 Presence of (intrauterine) contraceptive device; Z71.2 Person consulting for explanation of examination or test findings
CPT/HCPCS: 99213

== ENCOUNTER → 2024-01-14 15:18 | Outpatient (BNVA) | payer OTHER, SELFPAY | PROVIDERS: PCP Nurse Practitioner Family; Visit Provider Advanced Practice Midwife ==

== ENCOUNTER 2024-02-03 10:55 | Outpatient (REF) | payer OTHER, SELFPAY ==
--- NOTE | ~2024-02-03 | US_ITS ---
EXAMINATION: US PELVIS CLINICAL INFORMATION: Ovarian cyst right side, last menstrual period unknown, IUD. COMPARISON: 12/02/2023. TECHNIQUE: Ultrasound of the pelvis is performed using both transabdominal and transvaginal transducers along with Doppler. Transvaginal imaging is performed due to inadequate visualization transabdominally. FINDINGS: Uterus is anteverted and measures 7.4 x 2.9 x 5.[address] within the endometrial cavity. No significant free fluid. Left ovary measures 2.8 x 2.0 x 2.1 cm, volume 6.2 mL. Right ovary measures 4.0 x 2.4 x 2.4 cm, volume 12.0 mL. 2.4 x 2.0 x 2.0 cm complex right ovarian cyst with thick philippe and low-level internal echoes. Previous exam demonstrated a 1.5 x 1.1 x 1.5 cm complex cyst. US/US pelvic and transvaginal IMPRESSION: 1. IUD in place within the endometrial cavity. 2. A 2.4 cm complex right ovarian cyst with thick philippe and low-level internal echoes. Previous exam demonstrated a 1.5 cm complex cyst. Recommend followup ultrasound in 6-8 weeks. Electronically signed by: Ani Tobin MD 02/12/2024 10:29 AM EDT
== END 2024-02-03 10:56 | disposition home or self-care (01) ==
LOC: HO.US 10:55
PROVIDERS: PCP Nurse Practitioner Family; Visit Provider Advanced Practice Midwife
DX: N83.291 Other ovarian cyst, right side (principal)
CPT/HCPCS: 76830; 76856

== ENCOUNTER 2024-02-26 14:54 | Outpatient (AMB) | payer OTHER, SELFPAY ==
--- NOTE | 2024-02-26 14:55 | MHC.OFFVIS ---
Intake Visit Reasons: us results Small Engine Specialist Required: No Information Interpreted: non-clinical & clinical Relations Manager: Relations Manager Present Allergies sulfamethoxazole [From Bactrim] Adverse Reaction (Verified 02/26/24 14:55) rash trimethoprim [From Bactrim] Adverse Reaction (Verified 02/26/24 14:55) rash Is last menstrual period known: No (mirena) HPI Comments Details: Tele [place] visit 03:19-3:28 I spent 8 minutes speaking with the patient on the phone plus an additional 5 minutes reviewing the chart and 5 minutes updating the medical record for a total of 18minutes. Patient presents via phone to discuss: Ultrasound findings, history of random breakthrough bleeding with her IUD. She reports an occasional right pelvic pain. 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 Sexual orientation: Straight/Heterosexual Gender identity: Female Female Reproductive History Menstrual Age of Menarche: 15 Review of Systems Const All systems reviewed & are unremarkable except as noted in HPI and below Endo Reports no additional complaints Physical Exam Const General: cooperative, healthy appearing and no acute distress Psych Appearance: well kempt Attitude: cooperative Thought process: Normal thought process present Telehealth Telehealth Telehealth Platform: Telephone Location of provider rendering services: practice address Location of patient: address on file Patient Identification confirmed using: Name, : Yes Telehealth method: video Patient verbally consented to treatment: Yes Patient verbally consented to billing insurance company: Yes Patient informed of any privacy concerns related to visit: Yes Results Reviewed Results Reviewed: [address] [address] Ultrasound Report Signed Patient: Meenakshi Jo MR#: [id number] : 1990 Acct:[id number] Age/Sex: 33 / F ADM Date: 02/03/24 Loc: HO. Attending Dr: Khushi Tinoco CNM Ordering Physician: Khushi Tinoco CNM Date of Service: 02/03/24 Procedure(s): US pelvic and transvaginal Accession Number(s): [id number] cc: Khushi Tinoco CNM; Bonnie Byrd MERCERIZING RANGE CONTROLLER~ EXAMINATION: US PELVIS CLINICAL INFORMATION: Ovarian cyst right side, last menstrual period unknown, IUD. COMPARISON: 12/02/2023. TECHNIQUE: Ultrasound of the pelvis is performed using both transabdominal and transvaginal transducers along with Doppler. Transvaginal imaging is performed due to inadequate visualization transabdominally. FINDINGS: Uterus is anteverted and measures 7.4 x 2.9 x 5.[address] within the endometrial cavity. No significant free fluid. Left ovary measures 2.8 x 2.0 x 2.1 cm, volume 6.2 mL. Right ovary measures 4.0 x 2.4 x 2.4 cm, volume 12.0 mL. 2.4 x 2.0 x 2.0 cm complex right ovarian cyst with thick philippe and low-level internal echoes. Previous exam demonstrated a 1.5 x 1.1 x 1.5 cm complex cyst. US/US pelvic and transvaginal IMPRESSION: 1. IUD in place within the endometrial cavity. 2. A 2.4 cm complex right ovarian cyst with thick philippe and low-level internal echoes. Previous exam demonstrated a 1.5 cm complex cyst. Recommend followup ultrasound in 6-8 weeks. 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 Counseled regarding findings of: Complex ovarian cyst, which is often benign, and most resolve on their own overtime. Some develop into premalignant or malignant tumors. Limitations of testing for diagnostic purposes. Further monitoring and evaluation is recommended with US, possible CT, or MRI study. If persists, or is indicated (Ca-125, Carbohydrate Antigen 19-9, & Carcinoembryonic Antigen) labs will be ordered and referral to [facility] or general gynecology for MD care if indicated for possible surgical consult. Follow up in for test results, tele visit option available. Call if any pain on the right side that is increasing or persistent. All of her questions and concerns were addressed to the best of my ability and shared decision making. She is agreeable to the plan of care. This note is constructed using voice recognition software. While every effort has been made to ensure accuracy, interventional cardiologist errors may have been included. Orders: Orders US pelvic and transvaginal 03/23/24 N83.299 - Other ovarian cyst, unspecified side Coding Level of Care Code Tele Est Pt Level 3 (30179) Diagnoses Encounter to discuss test results Z71.2 Complex ovarian cyst N83.299
== END 2024-02-26 15:54 | disposition home or self-care (01) ==
LOC: HO.HWS 14:54
PROVIDERS: PCP Nurse Practitioner Family; Visit Provider Advanced Practice Midwife
DX: Z71.2 Person consulting for explanation of examination or test findings (principal); N83.299 Other ovarian cyst, unspecified side
CPT/HCPCS: 99213

== ENCOUNTER → 2024-02-26 14:54 | Outpatient (BNVA) | payer OTHER, SELFPAY | PROVIDERS: PCP Nurse Practitioner Family; Visit Provider Advanced Practice Midwife ==

== ENCOUNTER 2024-03-24 12:48 | Outpatient (REF) | payer OTHER, SELFPAY ==
--- NOTE | ~2024-03-24 | US_ITS ---
EXAMINATION: US PELVIS CLINICAL INFORMATION: Ovarian cyst right side, last menstrual period unknown, IUD. COMPARISON: 12/02/2023, 02/03/2024. TECHNIQUE: Ultrasound of the pelvis is performed using both transabdominal and transvaginal transducers along with Doppler. Transvaginal imaging is performed due to inadequate visualization transabdominally. FINDINGS: Uterus is anteverted and measures 6.0 x 2.8 x 4.[address] within the endometrial cavity. Endometrial thickness is 3 mm. No significant free fluid. Left ovary measures 2.9 x 2.4 x 2.2 cm, volume 8.3 mL, previously 2.8 x 2.0 x 2.1 cm, volume 6.2 mL. Right ovary measures 2.9 x 2.4 x 2.2 cm, volume 9.6 mL, previously 4.0 x 2.4 x 2.4 cm, volume 12.0 mL. Multiple bilateral ovarian follicles. Interval resolution of previously seen ovarian cysts. US/US pelvic and transvaginal IMPRESSION: 1. IUD in place within the endometrial cavity. 2. Interval resolution of previously seen right ovarian cysts. Unremarkable bilateral ovaries. Electronically signed by: Ani Tobin MD 04/08/2024 12:09 PM EDT
== END 2024-03-24 12:49 | disposition home or self-care (01) ==
LOC: HO.US 12:48
PROVIDERS: PCP Nurse Practitioner Family; Visit Provider Advanced Practice Midwife
DX: N83.299 Other ovarian cyst, unspecified side (principal)
CPT/HCPCS: 76830; 76856

== ENCOUNTER 2025-03-24 08:36 | Outpatient (AMB) | payer OTHER, SELFPAY ==
--- NOTE | 2025-03-24 08:46 | MHC.OFFVIS ---
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 Wet Pour Mixer concerns: pelvic pain x1.5mo., intermittently few times, similar to when she had a cyst in the past. Mirena IUD user. No current intimate partner, wants STD blood work. She tries to eat healthy and stays active with exercise. FH colon cancer. Last pap smear 2022, negative. [facility] Medical History IUD surveillance Pelvic pain Abnormal Pap smear of cervix History of depression Family History Maternal Grandfather Colon cancer Mother No problems noted. 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 Sexual orientation: Straight/Heterosexual Gender identity: Female Female Reproductive History Menstrual Age of Menarche: 15 control method: progestin IUCD (mirena 08/28) Total pregnancies: 0 Date of last pap smear: 10/11/22 (neg pap and hpv) History of abnormal pap smear: Yes (08/28 ascus) Review of Systems Const All systems reviewed & are unremarkable except as noted in HPI and below Reports as per HPI Eyes Reports no additional complaints ENT Reports no additional complaints Card Reports no additional complaints Resp Reports no additional complaints GI Reports as per HPI and Reports no additional complaints Reports as per HPI Musc Reports no additional complaints Skin/Breast Reports as per HPI Neuro Reports no additional complaints Psych Reports no additional complaints Endo Reports no additional complaints Dusty/Lymph Reports no additional complaints Aller/Immun Reports no additional complaints Physical Exam Vital Signs: Last Vital Signs BP 112/70 03/24/25 08:48 BMI result Body Mass Index 46.8 Const General: cooperative, healthy appearing, no acute distress, well developed and alert Orientation/consciousness: patient oriented x3 HEENT Head: Yes normal to inspection Eyes General: appearance normal, both eyes and all related structures Neck Neck: Yes normal visual inspection Thyroid: Thyroid normal Chest Chest palpation & inspection: normal inspection of the chest and other (no puckering, dimpling, peau de orange, retraction, discharge, masses) Breast/axilla inspection: normal inspection of the breasts Breast/axilla palpation: normal palpation of the breasts Resp Effort & Inspection: normal respiratory effort GI Inspection: Yes normal to inspection Palpation (GI): Soft to palpation Rectal Exam - Female: deferred General: Yes bladder normal to palpation External Female Exam: normal external appearance and normal appearance of the urethra Speculum Exam - Vagina: normal appearance of the vagina, normal palpation and normal vaginal discharge Speculum Exam - Cervix: normal appearance of the cervix, normal palpation and Other cervical findings present (IUD string seen at the os) Bimanual exam- vagina & uterus: normal bimanual exam, normal palpation, uterine size normal, bladder normal to palpation, normal palpation and non-tender Bimanual Exam- Adnexa, other: no masses Skin General skin exam: no rashes or lesions noted Rashes: no rashes Neuro General: patient oriented x3 Cognition (Neuro): normal cognition Extrem General: Yes normal to inspection Psych Attitude: cooperative Thought process: Normal thought process present Results AMB Urinalysis, Automated UA Leukoctes 0 Missael/uL Last Edit by BARBARA Tavera on 03/24/25 09:01 UA Nitrite Negative Last Edit by BARBARA Tavera on 03/24/25 09:01 UA Urobilinogen 0 mg/dL Last Edit by BARBARA Tavera on 03/24/25 09:01 UA Protein 0 mg/dL Last Edit by BARBARA Tavera on 03/24/25 09:01 UA pH 6.0 Last Edit by BARBARA Tavera on 03/24/25 09:01 UA Blood 0 Ayaz/uL Last Edit by BARBARA Tavera on 03/24/25 09:01 UA Specific [place] 1.020 Last Edit by BARBARA Tavera on 03/24/25 09:01 UA Ketone Negative Last Edit by Ness BARBARA Clark on 03/24/25 09:01 UA Bilirubin 0 mg/dL Last Edit by NessBARBARA Mazariegos on 03/24/25 09:01 UA Glucose 0 mg/dL Last Edit by Ness BARBARA Clark on 03/24/25 09:01 Assessment & Plan Assessment & Plan (1) Encounter for annual routine gynecological examination: Code(s): Z01.419 - Encounter for gynecological examination (general) (routine) without abnormal findings Category: Medical Plan: Discussed: Current recommendations for pap smears per ASCCP guidelines. Breast awareness and periodic breast exams. Maintain a healthy lifestyle including a well balanced diet and routine exercise. Use condoms for STI prevention. Patient verbalizes understanding and agrees to the plan of care. She was given opportunity to ask questions and all questions were answered to the best of my ability. RTO in one year for annual lead clinical research coordinator examination. This note is constructed using voice recognition software. While every effort has been made to ensure accuracy, hand method lasting machine operator errors may have been included. (2) Pelvic pain: Code(s): R10.20 - Pelvic and perineal pain unspecified side Category: Medical Plan: Plan pelvic ultrasound, cervical cultures. Follow up pending test results. If increased pain or persistent pain to reports the ED for immediate care. The patient expressed understanding and agreement with the plan of care. All of her questions and concerns were addressed to the best of my ability. Total time I personally spent on visit and management today: ?20 minutes. Time spent included review of pertinent office notes in the electronic health record; review of laboratory and imaging results; review of personal family medical history; performing physical exam; discussing diagnosis and plan of care with the patient; documenting the encounter in the EMR. (3) IUD surveillance: Code(s): Z30.431 - Encounter for routine checking of intrauterine contraceptive device Category: Medical Plan Pelvic ultrasound ordered. Orders: Orders AMB Urinalysis Automated Today R10.20 - Pelvic and perineal pain unspecified side HIV Ab/Ag Today Z20.2 - Contact with and (suspected) exposure to infections with a predominantly sexual mode of transmission Hepatitis C Antibody Reflex Today Z20.2 - Contact with and (suspected) exposure to infections with a predominantly sexual mode of transmission Syphilis Screen Today Z20.2 - Contact with and (suspected) exposure to infections with a predominantly sexual mode of transmission Hepatitis B Core Antibody Today Z20.2 - Contact with and (suspected) exposure to infections with a predominantly sexual mode of transmission US pelvic and transvaginal Today R10.20 - Pelvic and perineal pain unspecified side, Z30.431 - Encounter for routine checking of intrauterine contraceptive device Bacterial Vaginosis Panel Today Z20.2 - Contact with and (suspected) exposure to infections with a predominantly sexual mode of transmission CT NG by PCR Vag/Cerv Today Z20.2 - Contact with and (suspected) exposure to infections with a predominantly sexual mode of transmission Coding Level of Care Code Est Pt Level 2 (90019) Est Pt Prev Care 18-39y(85571) Diagnoses Encounter for annual routine gynecological examination Z01.419 Pelvic pain R10.20 IUD surveillance Z30.431
[2025-03-24 08:48] VITALS: BP 112/70; BMI 46.8
--- OUTSIDE RECORDS SUMMARY | 2025-03-24 09:06 | XMS_ITS | Encounter Summary ---
Author Organization [facility] Address [address] [place] [address] Phone Care Team Providers Care Pricing Analyst Name Role Phone Layne Barr NP Primary Care Provider Jina lafleur Encounter Details Date Type Department Care Team (Late st Contact Info) Description 01/24/2017 Conversion Encounter [facility] - [address] [address] Social History Tobacco Use Types Packs/Day Years Used Date Smoking Tobacco: Never Assessed Comments Unknown Sex and Gender Information Value Date Recorded Sex Assigned at Not on file Legal Sex Female 4:44 PM EDT Gender Identity Not on file Sexual Orientation Not on file documented as of this encounter Plan of Treatment Not on file documented as of this encounter Visit Diagnoses Not on filedocumented in this encounter Care Teams Pricing Analyst Relationship Specialty Start Date End Date Layne Barr NP PCP - General 01/18/17 documented as of this encounter
--- OUTSIDE RECORDS SUMMARY | 2025-03-24 09:06 | XMS_ITS | Clinical Summary ---
Author Organization [facility] Address [address] [place] [id number] Phone Care Team Providers Care Sheep Boner Name Role Phone Layne Barr NP Primary Care Provider Jina lafleur Immunizations Immunization Administration Dates Next Due DTP 10/07/1993, 3,1992,1991 DTaP 5 02/07/1997 Hep B, ped/adol 02/07/1997,1992,1992 Hib (PRP-T) 1992,1992,1992 IPV 02/07/1997, 4,1992,1992,1992 Influenza Split 04/28/1999,04/08/1998 Influenza, injectable, trivalent 04/28/1999,03/12 MMR 02/07/1997,07/10/1993 Td (adult) (MBL), 2 Lf tetan us toxoid, PF, adsorbed 11/23/2003 Family History Relation Name Status Comments Brother 1 Brother: ADD/AD HD, Asthma Brother 2 Brother: ADD/AD HD, Asthma Father Father: Obesity Mother Mother: Migrain es Sister Alive Sister: Alive a nd well Social History Tobacco Use Types Packs/Day Years Used Date Smoking Tobacco: Never Assessed Comments Unknown Sex and Gender Information Value Date Recorded Sex Assigned at Not on file Legal Sex Female 4:44 PM EDT Gender Identity Not on file Sexual Orientation Not on file Plan of Treatment Health Maintenance Due Date Last Done Comments DTaP,Tdap,and Td Vaccines (6 - Tdap) 11/24/2003 11/23/2003, 02/07/1997, 10/07/1993, Additional history exists Varicella Vaccines (1 of 2 - 13+ 2-dose series) 2005 HPV Vaccines (1 - 3-dose SCDM series) 2019 Influenza Vaccines (#1) 2025 04/28/19 99, 04/28/1999, 04/08/1998, Additional history exists COVID-19 Vaccine (2024- season) 2025 HIB Vaccines Aged Out 1992, 07/12, 1992 No longer eligible based on patient's age to complete this topic Hepatitis B Vaccines Completed 02/07/1997, 1992, 1992 IPV Vaccines Completed 02/07/1997, 09/10, 1992, Additional history exists MMR Vaccines Completed 02/07/1997, 07/10/1993 Hepatitis A Vaccines Aged Out No long er eligible based on patient's age to complete this topic Men B Vaccine Aged Out No longer elig ible based on patient's age to complete this topic Meningococcal Vaccine Aged Out No yanet natalia eligible based on patient's age to complete this topic Pneumococcal Vaccine Aged Out No long er eligible based on patient's age to complete this topic Care Teams Sheep Boner Relationship Specialty Start Date End Date Layne Barr NP PCP - General 01/18/17
--- OUTSIDE RECORDS SUMMARY | 2025-03-24 09:06 | XMS_ITS | Encounter Summary ---
Author Organization [facility] Address [address] [place] [phone] Phone Care Team Providers Care Superintendent Landfill Operations Name Role Phone Layne Barr NP Primary Care Provider Jina lafleur Encounter Details Date Type Department Care Team (Late st Contact Info) Description 10/02/2016 Documentation [facility] Family Medicine [address] [place] [address] Family Medicine, Physician [facility] [address] [place], [place] [id number] Social History Tobacco Use Types Packs/Day Years [...] on filedocumented in this encounter Care Teams Superintendent Landfill Operations Relationship Specialty Start Date End Date Layne Barr NP PCP - General 01/18/17 documented as of this encounter
--- OUTSIDE RECORDS SUMMARY | 2025-03-24 09:08 | XMS_ITS | Clinical Summary ---
Author Organization [facility] Address [address] [place] [address] Care Team Providers Care Magazine Feeder Name Role Phone Brooklyn Ricketts APRN Primary Care Provider [phone] Allergies Active Allergy Reactions Criticality Noted Date Comments Sulfamethoxazole-Trimethoprim Rash Low 2019 Medications Medication Sig Dispensed Refills Start Date End Date Status levonorgestrel (MIRENA, 52 MG,) 20 MCG/24HR IUD 1 each by Intrauterine route once. 0 Active Active Problems Problem Noted Date Diagnosed Date Encounter for routine checki ng of intrauterine contraceptive device (IUD) 07/09/2019 Class 3 severe obesity due t o excess calories without serious comorbidity with body mass index (BMI) of 45.0 to 49.9 in adult 07/09/2019 Type 2 diabetes mellitus without complication Immunizations Name Administration Dates Next Due Influenza Quad (Afluria/Fluz one) 0.5mL >=6mon Vial (SD-IIV4) 06/29/2019 Family History Medical History Relation Name Comments ADD / ADHD Brother Asthma Brother Depression Brother Tourette syndrome Brother COPD Father Colon cancer Maternal Grandfather Colon polyps Maternal Grandfather Asthma Mother Drug abuse Sister Relation Name Status Comments Brother Alive Father Alive Maternal Grandfather Mother Alive Sister Alive Social History Tobacco Use Types Packs/Day Years Used Date Smoking Tobacco: Never Smokeless Tobacco: Never Tobacco Cessation:Counseling Given: No Alcohol Use Standard Drinks/Week Comments Yes 0 (1 standard drink = 0.6 oz pur e alcohol) socially Sex and Gender Information Value Date Recorded Sex Assigned at Female 07/09/2019 10:42 AM EST Gender Identity Female 07/09/2019 10:42 AM EST Sexual Orientation Straight 07/09/2019 10 :42 AM EST Last Filed Vital Signs Vital Sign Reading Time Taken Comments Blood Pressure 126/90 12/04/2019 9:05 AM EDT Pulse 82 12/04/2019 9:05 AM EDT Temperature 37.2 C (98.9 F) 12/04/2019 9:05 AM EDT Respiratory Rate 16 06/29/2019 10:21 AM EST Oxygen Saturation 98% 12/04/2019 9:05 AM EDT Inhaled Oxygen Concentration - - Weight 134.3 kg (296 lb) 12/04/2019 9:05 AM EDT Height 167.6 cm (5' 6 ) 12/04/2019 9:05 AM EDT Body Mass Index 47.78 12/04/2019 9:05 AM EDT Plan of Treatment Health Maintenance Due Date Last Done Comments Hepatitis B Vaccines (1 of 3 - 3-dose series) 1992 Hepatitis C Screening 1992 COVID-19 Vaccine (#1) 1992 Pneumococcal Vaccine (1 of 2 - PCV) 1998 Diabetes: Eye Exam (No Retinopathy) 2010 Diabetes: Foot Exam 2010 Diabetes: Microalbumin Test 2010 Preventative Health Evaluation 2010 DTap / Tdap / Td (1 - Tdap) 2011 Cervical Cancer Screening (Pap Smear) 2013 Hemoglobin A1C Due 06/04/2020 12/04/2019, 06/29/2019 Depression Screening 06/29/2020 06/29/2019 BMI Counseling 12/03/2020 12/04/2019, 07/09/2019, 06/29/2019 Influenza Vaccine (#1) 2025 06/29/2019 RSV Ped < 20 months Aged Out No longe r eligible based on patient's age to complete this topic Care Teams Magazine Feeder Relationship Specialty Start Date End Date Brooklyn Ricketts APRN [address] [facility] [address] [place] [address] PCP - General Family Medicine 06/19/19
== END 2025-03-24 09:41 | disposition home or self-care (01) ==
LOC: HO.HWS 08:38
PROVIDERS: PCP Nurse Practitioner Family; Visit Provider Advanced Practice Midwife
DX: Z01.419 Encounter for gynecological examination (general) (routine) without abnormal findings (principal); R10.20 Pelvic and perineal pain unspecified side; Z30.431 Encounter for routine checking of intrauterine contraceptive device
CPT/HCPCS: 99212; 99395; 99459

== ENCOUNTER 2025-03-24 08:36 | Outpatient (REF) | payer OTHER, SELFPAY ==
--- OUTSIDE RECORDS SUMMARY | 2025-03-24 10:11 | XMS_ITS | Clinical Summary ---
Author Organization [facility] Address [address] [place] [phone] Phone Care Team Providers Care Provider Relations Consultant Name Role Phone Unknown, Unknown Primary Care Provider Jina lafleur Immunizations Immunization Administration Dates Next Due COVID-19 (Pre-04/01) Pfizer Vaccine, mRNA, PF ,10/02/2020 Social History Tobacco Use Types Packs/Day Years Used Date Smoking Tobacco: Never Assessed Education Answer Date Recorded Are you interested in more education? Not on shae e 10/05/2022 Are you concerned about learning? Not on file 10/05/2022 No 10/05/2022 No 10/05/2022 Digital Access Answer Date Recorded No 11/03/2022 No 11/03/2022 No 11/03/2022 Reliable internet access at home? Not on file 11/03/2022 Device with a working camera? Not on file Comments Unknown Sex and Gender Information Value Date Recorded Sex Assigned at Not on file Legal Sex Female 10:25 PM EDT Gender Identity Not on file Sexual Orientation Not on file Plan of Treatment Health Maintenance Due Date Last Done Comments DEPRESSION SCREENING 2004 SMOKING Hx and SMOKELESS TOBACCO SCREENING 2005 HEPATITIS C SCREENING 2010 HIV ONE-TIME SCREENING (18-65 YEARS) 2010 PAP SMEAR 2013 Adult Td,Tdap Booster 11/22/2013 11/23/2003 INFLUENZA VACCINE (#1) 2025 , 03/30/2018, 04/23/2008, Additional history exists COVID-19 VACCINE ( season) 2025 10/23/2020, 10/02/2020 HIB VACCINES Aged Out 1992, 07/12, 1992 No longer eligible based on patient's age to complete this topic HEPATITIS A VACCINES Aged Out No long er eligible based on patient's age to complete this topic MENINGOCOCCAL VACCINES (ACWY) Aged Out No longer eligible based on patient's age to complete this topic MENINGOCOCCAL VACCINES (B) Aged Out N o longer eligible based on patient's age to complete this topic PNEUMOCOCCAL VACCINES (0-49 years) Aged Out No longer eligible based on patient's age to complete this topic Medical Devices Not on file [place] [address] [place] [address] [employer] DIRECT [facility] [employer] DIRECT [facility] [employer] [facility] [employer] [facility] [employer] DIRECT [facility] [employer] DIRECT [employer] [place] [address] [place] [address] [place] [address] [place] [address] [employer] DIRECT Care Teams Provider Relations Consultant Relationship Specialty Start Date End Date Unknown, Unknown, PCP - General 09/25/20 Additional Source Comments The information contained in this document represents components of the legal health record. It is not the complete legal health record.[facility]
[2025-03-24 11:30] LABS: Syphilis Screen Nonreactive (Nonreactive)
[2025-03-24 11:31] LABS: HBc Num1 0.06 S/CO (0.00-0.79); HIV Num 1 0.07 S/CO (0.00-0.99); ~HepC Num1 0.09 S/CO (0.00-0.79); ~Hepatitis C Antibody Nonreactive (Nonreactive)
[2025-03-24 16:00] LABS: Bacterial Vaginosis PCR NEGATIVE (Negative); Candida Group PCR NOT DETECTED (Not Detect); Candida glab krusei PCR NOT DETECTED (Not Detect); Trichomonas vaginalis PCR NOT DETECTED (Not Detect)
[2025-03-24 16:30] LABS: CT PCR NOT DETECTED (Not Detect.); NG PCR NOT DETECTED (Not Detect.)
== END 2025-03-24 08:37 | disposition home or self-care (01) ==
LOC: HO.LAB 08:36
PROVIDERS: PCP Nurse Practitioner Family; Visit Provider Advanced Practice Midwife
DX: Z01.419 Encounter for gynecological examination (general) (routine) without abnormal findings (principal); R10.20 Pelvic and perineal pain unspecified side; Z30.431 Encounter for routine checking of intrauterine contraceptive device; Z20.2 Contact with and (suspected) exposure to infections with a predominantly sexual mode of transmission; Z11.59 Encounter for screening for other viral diseases; Z11.4 Encounter for screening for human immunodeficiency virus [HIV]
CPT/HCPCS: 36415; 81003; 81515; 86704; 86780; 86803; 87389; 87491; 87591; 99212; 99395

== ENCOUNTER 2025-03-24 09:11 | Outpatient (REF) | payer OTHER, SELFPAY | END 2025-03-24 09:12 | disposition home or self-care (01) | LOC: HO.LNP 09:11 | PROVIDERS: Visit Provider Advanced Practice Midwife | DX: Z13.89 Encounter for screening for other disorder (principal) ==

== ENCOUNTER 2025-05-21 11:30 | Outpatient (REF) | payer OTHER, SELFPAY ==
--- NOTE | ~2025-05-21 | US_ITS ---
CLINICAL HISTORY: R10.20 - Pelvic and perineal pain unspecified side US pelvis transvaginal Comparison: 03/24/2024 Findings: Transvaginal scanning performed. Anteverted uterus is 8.3 cm length. Normal myometrium. Endometrium 6.0 mm thickness. IUD is well-positioned. Right ovary 2.7 x 2.0 x 1.7 cm. Left ovary 3.6 x 2.6 x 2.0 cm. Normal color Doppler of both ovaries. No free fluid. IMPRESSION: 1. Normal pelvic ultrasound This document has been electronically signed by: Josr Sullivan MD on 05/22/2025 09:03:04
== END 2025-05-21 11:31 | disposition home or self-care (01) ==
LOC: HO.US 11:30
PROVIDERS: PCP Nurse Practitioner Family; Visit Provider Advanced Practice Midwife
DX: Z30.431 Encounter for routine checking of intrauterine contraceptive device (principal); R10.20 Pelvic and perineal pain unspecified side
CPT/HCPCS: 76830; 76856

== ENCOUNTER → 2025-05-21 11:33 | Outpatient (BNV) | payer OTHER, SELFPAY | PROVIDERS: PCP Nurse Practitioner Family; Visit Provider Specialist | DX: R10.20 Pelvic and perineal pain unspecified side (principal) | CPT/HCPCS: 76830; 76856 ==